=== PATIENT | male | born 1970 | race Caucasian/White ===

== ENCOUNTER 2016-10-24 16:39 | Emergency (ER) | payer OTHER ==
[~2016-10-24] VITALS: Ht 165.1 cm; Wt 61.6 kg
[~2016-10-24 16:39] MED LIST: ALPR-385 PO; CLON0.1T12 PO; FLNIN/ NAE; MORP1INJ; OXYC7.5T65 PO
[2016-10-24 16:50] VITALS: TEMP 37.2; Ht 165.1 cm; Wt 61.6 kg
[2016-10-24] MEDS ORDERED: ELMCR TOP (17:25)
--- NOTE | 2016-10-24 17:27 | EMERGENCY ROOM VISIT NOTE ---
History First contact with patient: 16:58 Chief Complaint: BITE Stated Complaint: BUG BITES, POSSIBLE ALLERGIC REACTION History of Present Illness The patient is a 46 year old male who presents to the Emergency Room via private vehicle with complaints of "bug bites, possible allergic reaction". The patient states that a few days ago he noticed that his right foot began to feel itchy. He then developed small little little red raised blotches on his feet that are now bilateral. He states that he saw his family doctor yesterday , who informed him of these were for bites and he is to take Claritin for this. He also has bites on his face. He states these regions are itchy. He denies any itching in between his digits. He also states that it feels as though there is a burning sensation in these regions. His tetanus is up-to-date. He states that one of his family members seemed to have similar symptoms and then hugged him, and then shortly thereafter he noticed he had bites on his body. While in the waiting room today at the hospital he states that he saw a little black bug jump from his sock. He states that he did not begin the Claritin as he is concerned that this medication may interact with his Suboxone. Review of Systems A complete 6-point Review of Systems was discussed with the patient, with pertinent positives and negatives listed in the History of Present Illness. All remaining Review of Systems questions can be considered negative unless otherwise specified. Past Medical/Surgical History Medical Problems: (1) Bipolar Disorder, Unspecified (2) Cervical Disc Displacmnt (3) Cervicalgia (4) Inj musc/tend the rotator cuff of left shoulder, init (5) Inj musc/tend the rotator cuff of left shoulder, init (6) Knee contusion Surgical Problems: (1) S/P appendectomy Family History Cancer Diabetes mellitus Social History Smoking Status: Current Every Day Smoker Alcohol Use: occasionally Drug Use: none Housing Status: lives alone Occupation Status: employed Current/Historical Medications Scheduled Clonidine Hcl (Catapres), 1 TAB PO BID Fluticasone Propionate (Fluticasone Propionate), 2 SPRAYS KINZA DAILY Morphine Sulfate (Morphine Sulfate), BID Permethrin 5% (Elimite 5%), 1 APPLN TOP DIRECTED Scheduled PRN Alprazolam (Xanax), 1 TAB PO BID PRN for Anxiety/Agitation Oxycodone/Acetaminophen 7.5MG/325MG (Percocet 7.5MG/325MG), 1 TAB PO QID PRN for Pain Allergies Coded Allergies: Tramadol (Unverified Allergy, Mild, DISORIENTATION/PASSES OUT, 02/05/16) White Fish (Verified Allergy, Mild, G I UPSET, 02/05/16) Clindamycin (Verified Allergy, Unknown, HIVES, 02/05/16) Physical Exam Vital Signs Date Time Temp Pulse Resp B/P (MAP) Pulse Ox O2 Delivery O2 Flow Rate FiO2 10/24/16 17:40 98 20 118/71 96 10/24/16 16:50 37.2 93 18 124/73 96 Room Air Physical Exam VITAL SIGNS - Vital signs and nursing notes were reviewed. Afebrile, normotensive, non-tachycardic and is saturating well on room air 96%. GENERAL -46-year-old male appearing his stated age who is in no acute distress. Communicates well with provider and answers questions appropriately. SKIN - there are small raised red dots on the patient's legs. These are consistent with either flea bites or scabies. There are no interdigital excoriations. Medical Decision & Procedures Medical Decision The patient was seen and evaluated as above. He presents to us today with small bites on his body that either are from bedbugs, scabies or fleas. There are no interdigital excoriations therefore I believe fleas are most likely. Because he has been in contact with individuals with similar symptoms I will preemptively treat him in case this is scabies with permethrin 5%. He was educated upon use. He is to leave here pickup repair of white tube socks that he is to wear walk around his house to see if it could be fleas. Based upon his history, it sounds as though in our waiting room here he had a flea on him. The bites do look consistent with that with flea bites. I suspect he will likely have to have an sandwich counter attendant take care of this issue . However, he is to follow-up with his family doctor regarding today's visit for further evaluation and management. He is to return with any worsening. He was educated upon worrisome symptoms in which to return, had questions prior to discharge, and was discharged home in good condition. He states that he was concerned that the medication he is currently taking will interact with the Claritin, therefore I discussed the case with the pharmacist who indicated that it would be okay to take it with that medication. No interaction seem to be severe. The patient then called me after discharge asking if he could take medication such as Claritin or Benadryl with Suboxone. I indicated that it would be okay. He is to start low-dose. He was educated upon worrisome symptoms which to return, had discharge, and was discharged in good condition In the evaluation and treatment of this patient the following differential diagnoses were entertained: Flea bites, scabies, allergic reaction, bedbugs, among others. Impression Primary Impression: bites Departure Information Dispostion Home / Self-Care Condition GOOD Prescriptions Permethrin 5% (Elimite 5%) 180 Appln/60 Gm Cr 1 APPLN TOP DIRECTED, #1 TUBE Thoroughly massage cream from head to soles of feet; leave on for 8 to 14 hours before removing (shower or bath) Prov: Contreras Mabry PA-C 10/24/16 Referrals No Doctor, Assigned (PCP) Patient Instructions My [facility] Additional Instructions You were seen in the emergency Department for was believed to be small bites on her legs and body. At this time this is most likely fleas, and for this I recommend you wear white socks and try to identify small little jumping objects. If this is true he will need to look into termination of the mites. It is also possible this could be scabies, and for this reason you'll be prescribed a cream. Please use as instructed below. Topical: Cream 5%: Thoroughly massage cream from head to soles of feet; leave on for 8 to 14 hours before removing (shower or bath) may repeat if living mites are observed 14 days after first treatment; one application is generally curative. Please call the family doctor to schedule follow-up regarding today's visit. For the itching you may use Benadryl according to the package. Please return to the emergency department with any new/concerning symptoms.
[2016-10-24 17:40] VITALS: BP 118/71; PULSE 98; O2SAT 96
== END 2016-10-24 17:42 | disposition home or self-care (01) ==
LOC: C.EDB 16:40 → C.EDD 17:42
DX: S90.861A Insect bite (nonvenomous), right foot, initial encounter (principal); S90.862A Insect bite (nonvenomous), left foot, initial encounter; S00.86XA Insect bite (nonvenomous) of other part of head, initial encounter; S80.861A Insect bite (nonvenomous), right lower leg, initial encounter; S80.862A Insect bite (nonvenomous), left lower leg, initial encounter; W57.XXXA Bitten or stung by nonvenomous insect and other nonvenomous arthropods, initial encounter; F31.9 Bipolar disorder, unspecified; Z80.9 Family history of malignant neoplasm, unspecified; Z83.3 Family history of diabetes mellitus; F17.210 Nicotine dependence, cigarettes, uncomplicated; Z79.899 Other long term (current) drug therapy

== ENCOUNTER → 2017-07-03 | Outpatient (CLI) | payer OTHER ==
[~2017-07-03] MED LIST changes: +ELMCR TOP
== END | disposition home or self-care (01) ==
LOC: C.LAB 04:44
DX: Z02.83 Encounter for blood-alcohol and blood-drug test (principal)